=== PATIENT | male | born 1990 | race Two or more races ===

== ENCOUNTER 2024-12-23 16:00 | Emergency (ER) | payer MEDICAID, OTHER ==
[~2024-12-23] VITALS: Ht 177.8 cm; Wt 91.0 kg
[2024-12-23] MEDS: TETANUS-DIPTH-ACEL PERTUSSIS 0.5ML SYR Tdap IM ONE (16:24)
[2024-12-23] MEDS: ONDANSETRON HCL 4 MG/2 ML VIAL IV ONE ×2 (16:28→20:41)
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
[2024-12-23] MEDS: HYDROmorphone HCL 2 MG/ML VL/or syr IV ONE ×2 (16:31→18:26)
[2024-12-23 16:43] VITALS: PULSE 62; RESP 15; O2SAT 92
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
[2024-12-23] MEDS: SODIUM CHLORIDE 0.9% 1,000 ML IV ONE ×2 (17:21→21:01)
[2024-12-23] MEDS: cefTRIAXone 1GM/50ML D5W 50 ML IV ONE (17:24)
[2024-12-23] MEDS: CLINDAMYCIN 600MG IV 50 ML IV ONE (17:38)
[2024-12-23 19:30] VITALS: PULSE 61; RESP 18; O2SAT 98
[2024-12-23] MEDS: MORPHINE SULFATE 4 MG/ML SYR/VIAL IV ONE ×2 (20:40→21:14)
[2024-12-23 21:27] VITALS: TEMP 98.5; O2SAT 93
--- NOTE | 2024-12-23 21:33 | DVH ---
CLINICAL INDICATION: LEFT HAND INJURY TECHNIQUE: 2 radiographic views of the left forearm were obtained. Comparison: None FINDINGS/IMPRESSION: There is no evidence of acute fracture or dislocation. The visualized joint space is well maintained. The alignment is anatomical. There is no radiopaque foreign body.
[2024-12-23 21:44] VITALS: BP 151/94; PULSE 69; RESP 14
== END 2024-12-23 22:09 | disposition short-term general hospital (02) ==
LOC: ER 16:00
DX: S62.92XB Unspecified fracture of left hand, initial encounter for open fracture (principal); V29.888A Rider (driver) (passenger) of other motorcycle injured in other specified transport accidents, initial encounter; Y93.I9 Activity, other involving external motion; Y92.488 Other paved roadways as the place of occurrence of the external cause; Y99.8 Other external cause status
CPT/HCPCS: 73090; 73120; 90471; 90715; 96361; 96365; 96368; 96375; 96376; 99285; J0696; J1171; J2270; J2405; J3490; J7030

== ENCOUNTER 2024-12-23 22:47 | Emergency (ER) | payer MEDICAID ==
[~2024-12-23] VITALS: Ht 170.2 cm; Wt 68.0 kg
[2024-12-23 23:00] VITALS: PULSE 76; RESP 19; O2SAT 94
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
[2024-12-23] MEDS: ONDANSETRON HCL 4 MG/2 ML VIAL IV ONE (23:28)
[2024-12-23] MEDS: MORPHINE SULFATE 4 MG/ML SYR/VIAL IV ONE (23:28)
[2024-12-23 23:34] VITALS: BP 142/81; PULSE 62; RESP 13; TEMP 98.3; O2SAT 96
== END 2024-12-23 23:37 | disposition short-term general hospital (02) ==
LOC: EDBD 22:47 → ER 22:47
DX: R58 Hemorrhage, not elsewhere classified (principal)
CPT/HCPCS: 96374; 96375; 99285; J2270; J2405